=== PATIENT | female | born 1955 | race Two or more races ===

== ENCOUNTER 2023-07-11 06:58 | Inpatient (IN) | payer OTHER ==
[~2023-07-11] VITALS: Ht 152.4 cm; Wt 68.0 kg
[~2023-07-11 06:58] MED LIST: CLONAZEPAM0.5 MG PO; CLONAZEPAM1 MG PO; KAPVAY0.1 MG PO; ZOLOFT20 MG/1 ML PO
[2023-07-11] MEDS ORDERED: ZOLOFT100 MG PO (07:51)
--- NOTE | 2023-07-11 07:51 | NUR ---
PACIENTE ALERTA Y ORIENTADA X3 ES REFERIDA POR PARA RECIBIR PRBC TRANSFUSION. PACIENTE TIENE CIRUGIA POSTULADA PARA EL 2023.
[2023-07-11] MEDS ORDERED: 0.9 % SODIUM CHLORIDE 1,000 ML IV ONE (08:30)
--- NOTE | 2023-07-11 08:42 | NUR ---
PTE EVALUADA POR MD MURILLO. RN BERRY ORIENTA SOBRE TRATAMIENTO A REALIZAR QUIEN REFIERE ENTENDER Y ACEPTAR. SE CANALIZA BRAZO Y SE BENI MUESTRAS DE LAB POR ORDEN MEDICA BAJO MEDIDAS ASEPTICAS. SE ORIENTA SOBRE TRANFUSION SANGUINEA EL CUAL SE CRUZ PERMISO.
[2023-07-11 09:49] LABS: URINE APPEARANCE Clear; URINE BILIRRUBIN Negative (NEGATIVE); URINE BLOOD Small; URINE COLOR Yellow; URINE GLUCOSE Negative (NEGATIVE); URINE LEUKOCYTE Negative; URINE NITRATE Negative; URINE PROTEIN Negative (NEGATIVE); URINE UROBILINOGEN 0.2 E.U./dl
[2023-07-11 09:52] LABS: MEAN CORPUSCULAR HGB CONC 30.3 g/dl (32.0-36.0); PLATELET COUNT 244 K/uL (150-450); RED BLOOD COUNT 3.77 M/uL (4.00-6.00); RED CELL DISTRIBUTION WIDTH 17.7 % (11.5-14.5)
[2023-07-11 09:53] LABS: URINE EPITHELIAL CELLS 4.7 uL (0.0-38.8); URINE RBC 16.8 uL (0.0-20.8); URINE WBC 3.8 uL (0.0-23.2)
[2023-07-11 09:54] LABS: HEMOGLOBIN 7.6 g/dL (12.0-15.00); MEAN CELL VOLUME 66.2 fL (80.00-100.00); MEAN CORPUSCULAR HEMOGLOBIN 20.1 pg (27.00-32.0)
[2023-07-11 10:14] LABS: INR 0.95; PARTIAL THROMBOPLASTIN TIME 22.3 SECONDS (22.0-34.0)
[2023-07-11 10:21] LABS: ALBUMIN 3.1 gm/dL (3.4-5.0); BILIRUBIN TOTAL 0.35 mg/dL (0.3-1.2); CALCIUM 8.5 mg/dL (8.5-10.1); CREATININE SERUM 0.78 mg/dL (0.55-1.02); GFR 73.89; POTASSIUM 4.22 mEq/L (3.5-5.1); TOTAL PROTEIN 7.1 gm/dL (6.4-8.2)
--- NOTE | 2023-07-11 17:12 | NUR ---
SE LLAMA A BANCO DE PONCE PARA VERIFICAR ESTATUS DE DOS UNIDADES DE PRBC FRACCIONADAS. SE HABLA CON MS CARYNERO LA CUAL REFIERE AUN SE ENCUENTRAN TRABAJANDO EN EL DESPACHO DE LAS UNIDADES.
[2023-07-11] MEDS ORDERED: FUROsemide 20 MG/2 ML VIAL IV SCH (18:00)
[2023-07-11] MEDS ORDERED: DIPHENHYDRAMINE HCL 50 MG/ML VIAL 1ML IV PRN (18:00)
[2023-07-11] MEDS ORDERED: METHYLPREDNISOLONE SOD SUCC 40 MG VIAL IV PRN (18:00)
[2023-07-11] MEDS ORDERED: 0.9 % SODIUM CHLORIDE 1,000 ML IV SCH (18:00)
[2023-07-11] MEDS ORDERED: ACETAMINOPHEN 500 MG GEL..CAP PO PRN (18:15)
[2023-07-11] MEDS ORDERED: hydrALAZINE HCL 20 MG VIAL IV PRN (18:15)
[2023-07-11] MEDS ORDERED: ONDANSETRON HCL 4 MG in 0.9 % SODIUM CHLORIDE 50 ML IV PRN (18:15)
[2023-07-11] MEDS ORDERED: MORPHINE SULFATE 4 MG/ML VIAL IV PRN (18:15)
[2023-07-11] MEDS ORDERED: FAMOTIDINE/PF 20 MG in 0.9 % SODIUM CHLORIDE 8 ML IV PUSH SCH (21:00)
[2023-07-11] MEDS ORDERED: CLONAZEPAM 1 MG TABLET PO SCH (21:00)
[2023-07-12] MEDS ORDERED: FAMOTIDINE/PF 20 MG/2 ML VIAL ONE (08:56)
[2023-07-12] MEDS ORDERED: SERTRALINE HCL 100 MG TABLET PO SCH (09:00)
[2023-07-12] MEDS ORDERED: CLONAZEPAM 0.5 MG TABLET PO SCH (09:00)
[2023-07-12 11:02] LABS: PH,URINE 5.5 (5.0-8.0); URINE APPEARANCE Clear; URINE BILIRRUBIN Negative (NEGATIVE); URINE BLOOD Trace; URINE COLOR Yellow; URINE GLUCOSE Negative (NEGATIVE); URINE LEUKOCYTE Negative; URINE NITRATE Negative; URINE PROTEIN Negative (NEGATIVE); URINE UROBILINOGEN 0.2 E.U./dl
[2023-07-12 11:05] LABS: URINE BACTERIA 11.3 uL (0.0-1933)
[2023-07-12 11:16] LABS: ob POSITIVE (NEGATIVE)
[2023-07-12 11:32] LABS: URINE EPITHELIAL CELLS 0.6 uL (0.0-38.8); URINE WBC 0.7 uL (0.0-23.2)
[2023-07-12] MEDS ORDERED: PEG3350/SOD SULF,BICARB,CL/KCL 4,000 ML GALLON PO ONE (21:45)
[2023-07-13 03:53] LABS: HEMATOCRIT 29.3 % (36.0-45.00); MEAN CORPUSCULAR HGB CONC 31.3 g/dl (32.0-36.0); PLATELET COUNT 230 K/uL (150-450); RED BLOOD COUNT 4.35 M/uL (4.00-6.00); RED CELL DISTRIBUTION WIDTH 19.3 % (11.5-14.5)
[2023-07-13 03:57] LABS: HEMOGLOBIN 9.2 g/dL (12.0-15.00); MEAN CELL VOLUME 67.4 fL (80.00-100.00); MEAN CORPUSCULAR HEMOGLOBIN 21.1 pg (27.00-32.0)
[2023-07-13 04:01] LABS: ERYTHROCYTE SEDIMENTATION RATE 43 mm/hr
[2023-07-13 04:08] LABS: ALBUMIN 3.2 gm/dL (3.4-5.0); BILIRUBIN TOTAL 1.77 mg/dL (0.3-1.2); BILIRUBIN,CONJUGATED 0.37 mg/dL (0.0-0.2); BILIRUBIN,UNCONJUGATED 1.4 mg/dL (0.0-0.6); CHOL HDL RATIO 3.3 (0-5.0); CREATININE SERUM 0.68 mg/dL (0.55-1.02); GFR 86.57; GLOBULINA 3.6 G/DL (2.4-3.5); POTASSIUM 4.18 mEq/L (3.5-5.1); TOTAL PROTEIN 6.8 gm/dL (6.4-8.2)
[2023-07-13 04:09] LABS: INR 0.98; PARTIAL THROMBOPLASTIN TIME 24.5 SECONDS (22.0-34.0); PROTHROMBIN TIME 10.3 SECONDS (9.0-11.5)
[2023-07-13] MEDS ORDERED: CEFOXITIN SODIUM 2,000 MG VIAL IV ONE (07:58)
[2023-07-13] MEDS ORDERED: MORPHINE SULFATE 4 MG/ML CARTRIDGE IV SCH (13:00)
[2023-07-13] MEDS ORDERED: CEFOXITIN SODIUM 1,000 MG VIAL IV SCH (13:00)
[2023-07-13] MEDS ORDERED: FAMOTIDINE/PF 20 MG/2 ML VIAL ONE (15:37)
[2023-07-13] MEDS ORDERED: ENOXAPARIN SODIUM 30 MG/0.3 ML SYRINGE SUBCUTANEO SCH (17:00)
[2023-07-14] MEDS ORDERED: FAMOTIDINE/PF 20 MG/2 ML VIAL ONE (06:43)
[2023-07-15 08:00] LABS: MEAN CORPUSCULAR HGB CONC 31.5 g/dl (32.0-36.0); PLATELET COUNT 200 K/uL (150-450); RED CELL DISTRIBUTION WIDTH 19.4 % (11.5-14.5)
[2023-07-15 08:05] LABS: MEAN CELL VOLUME 69.1 fL (80.00-100.00); MEAN CORPUSCULAR HEMOGLOBIN 21.7 pg (27.00-32.0)
[2023-07-15 08:06] LABS: HEMATOCRIT 24.2 % (36.0-45.00)
[2023-07-15 08:07] LABS: HEMOGLOBIN 7.6 g/dL (12.0-15.00)
[2023-07-15] MEDS ORDERED: MORPHINE SULFATE 4 MG/ML CARTRIDGE IV SCH (13:00)
[2023-07-16 07:28] LABS: HEMATOCRIT 29.2 % (36.0-45.00); MEAN CELL VOLUME 72.3 fL (80.00-100.00); MEAN CORPUSCULAR HGB CONC 31.8 g/dl (32.0-36.0); PLATELET COUNT 216 K/uL (150-450); RED BLOOD COUNT 4.04 M/uL (4.00-6.00); RED CELL DISTRIBUTION WIDTH 21.2 % (11.5-14.5)
[2023-07-16 07:29] LABS: HEMOGLOBIN 9.3 g/dL (12.0-15.00)
[2023-07-16] MEDS ORDERED: FAMOTIDINE/PF 20 MG/2 ML VIAL ONE (08:02)
== END 2023-07-16 13:47 | disposition home or self-care (01) | DRG 982 ==
LOC: ER 06:58 → SURH 19:44
PROVIDERS: General Practice; ADMIT Internal Medicine; ATTEND Internal Medicine
PROC: 30233N1 Transfusion of Nonautologous Red Blood Cells into Peripheral Vein, Percutaneous Approach (ICD-10-PCS; 2023-07-11)
PROC: 4A12X4Z Monitoring of Cardiac Electrical Activity, External Approach (ICD-10-PCS; 2023-07-12)
PROC: 0DTF4ZZ Resection of Right Large Intestine, Percutaneous Endoscopic Approach (ICD-10-PCS; principal; 2023-07-13)
DX: D64.9 Anemia, unspecified (principal); C18.9 Malignant neoplasm of colon, unspecified